=== PATIENT | male | born 1960 ===

== ENCOUNTER 2016-08-06 10:32 | Observation (INO) | payer OTHER ==
[2016-08-06 10:37] VITALS: BMI 27.6
[2016-08-06 10:38] VITALS: RESP 18
[2016-08-06] MEDS ORDERED: Iohexol 240 (50 ml) PO STA (11:44)
[2016-08-06] MEDS ORDERED: Sodium Chloride 0.9% 1,000 ML IV ONE (11:44)
--- NOTE | 2016-08-06 11:46 | C.PDOC ---
History Of Present Illness Patient is a 56 y/o male that presents to the emergency department for evaluation of generalized abdominal pain for the past month. Pt states the pain is worse in the suprapubic region. Pt complains of lower back pain radiating down to his legs, and also complains of dysuria, and testicular pain for the last 3 days. Otherwise, denies any penile pain, hematuria, urinary frequency, n/ v/d, fever, chills, or any other associated symptoms at this time. Denies any history of kidney stones. Time Seen by Provider: 08/06/16 10:48 Chief Complaint (Nursing): Abdominal Pain History Per: Patient History/Exam Limitations: language barrier (translated from citizen of [place]) Onset/Duration Of Symptoms: Days (1 month) Current Symptoms Are (Timing): Still Present Location Of Pain/Discomfort: Suprapubic Radiation Of Pain To:: Back, Leg Quality Of Discomfort: "Pain" Associated Symptoms: Back Pain, Urinary Symptoms (dysuria). denies: Fever, Chills, Nausea, Vomiting, Diarrhea, Loss Of Appetite, Chest Pain, Constipation Exacerbating Factors: None Alleviating Factors: None Recent travel outside of the [place]: No Additional History Per: Patient Past Medical History Reviewed: Historical Data, Nursing Documentation, Vital Signs Vital Signs: Last Vital Signs Temp 97.4 F L 08/06/16 17:46 Pulse 64 08/06/16 17:46 Resp 18 08/06/16 17:46 BP 134/85 08/06/16 17:46 Pulse Ox 97 08/06/16 18:57 Family History: States: Unknown Family Hx - Social History Hx Alcohol Use: No Hx Substance Use: No - Immunization History Hx Influenza Vaccination: No Hx Pneumococcal Vaccination: No Review Of Systems Except As Marked, All Systems Reviewed And Found Negative. Constitutional: Negative for: Fever, Chills Cardiovascular: Negative for: Chest Pain, Palpitations Respiratory: Negative for: Shortness of Breath Gastrointestinal: Positive for: Abdominal Pain (worse in suprapubic). Negative for: Nausea, Vomiting, Diarrhea Genitourinary: Positive for: Dysuria, Scrotal Pain. Negative for: Frequency, Hematuria, Penile Discharge, Penile Pain Musculoskeletal: Positive for: Back Pain Neurological: Negative for: Weakness, Numbness Physical Exam - Physical Exam Appears: Non-toxic, No Acute Distress Skin: Normal Color, Warm, Dry Head: Atraumatic, Normacephalic Eye(s): bilateral: Normal Inspection, EOMI Neck: Normal ROM, Supple Chest: Symmetrical, No Tenderness Cardiovascular: Rhythm Regular, No Murmur Respiratory: Normal Breath Sounds, No Rales, No Rhonchi, No Wheezing Gastrointestinal/Abdominal: Soft, Tenderness (diffuse), No Guarding, No Rebound Back: No CVA Tenderness, No Vertebral Tenderness, No Paraspinal Tenderness Male Genital: Testicular Tenderness, No Testicular Swelling, No Scrotal Swelling Extremity: Normal ROM, No Deformity Neurological/Psych: Oriented x3, Normal Speech, Normal Cognition ED Course And Treatment - Laboratory Results Result Diagrams: 08/06/16 12:17 08/06/16 12:17 O2 Sat by Pulse Oximetry: 97 (on RA) Pulse Ox Interpretation: Normal - CT Scan/US Testicular US Other Rad Studies (CT/US): Read By Radiologist, Radiology Report Reviewed CT/US Interpretation: FINDINGS: RIGHT TESTICLE: Measures 4.7 x 2.2 x 3.1 cm. Homogeneous echotexture. No intratesticular mass identified. Normal flow. RIGHT EPIDIDYMIS: Epididymal head measures 1.1 x 1.1 x 1.3 cm. Epididymal head cyst noted measuring 0.5 cm. LEFT TESTICLE: Measures 4.5 x 2.4 x 2.8 cm. Homogeneous echotexture. No intratesticular mass identified. Normal flow. LEFT EPIDIDYMIS: Epididymal head measures 1.3 x 0.8 x 1 cm. Epididymal head cyst noted measuring 0.8 Cm. HYDROCELE: Moderate-size, Complex left hydrocele containing echogenic debris and incomplete septations. VARICOCELE: None. OTHER FINDINGS: None. IMPRESSION: Moderate size complex left hydrocele as above. Bilateral epididymal head cysts. Abd & pelvis CT Other Rad Studies (CT/US): Read By Radiologist, Radiology Report Reviewed CT/US Interpretation: FINDINGS: Lower thorax: Heart size is normal. There is a small hiatal hernia. There is minimal atelectasis and. scarring at the lung bases. ABDOMEN: Liver: There is fatty infiltration of the liver. Gallbladder and bile ducts: unremarkable. Pancreas: unremarkable. Spleen: unremarkable. Adrenals: unremarkable. Kidneys and ureters: unremarkable. Stomach and bowel: Stomach is partially distended. Rotation is normal. There is no obstruction. Terminal ileum is unremarkable. Appendix is unremarkable.There are no focal colonic abnormalities. Appendix: See above. PELVIS: Bladder: Bladder is partially distended. There is mild bladder wall prominence. Reproductive: Prostate is enlarged. Seminal vesicles are unremarkable. ABDOMEN and PELVIS: Intraperitoneal space: There is no free air or free fluid. Bones/joints: There are degenerative changes in the osseus structures. Soft tissues: There are bilateral fat containing inguinal hernias left greater than right. There is a. small fat containing umbilical hernia. Vasculature: Vascular structures are unremarkable. Lymph nodes: No pathologic adenopathy. IMPRESSION: Fatty liver, no acute solid visceral or bowel abnormality. Additional findings as described above. Progress Note: Labs, testicular ultrasound, abd&pelvis CT ordered and reviewed. Pt was given IV fluids, Toradol, and Iohexol in the ER. On re-eval, pt reports improvement of symptoms. Reassessment Condition: Improved (On re-evaluation pt reports resolution of abdominal pain.) ED OBSERVATION Discharge: Yes Date of observation admission: 08/06/16 Time of observation admission: 14:00 - Observation admission statement Patient is being placed in observation because:: ABDOMINAL AND TESTICULAR PAIN, PENDING CT AND SONO - Goals of Observation Goals of observation are:: ABDOMINAL AND TESTICULAR PAIN, PENDING CT AND SONO - Progress Note Progress Note: 08/06/16 14:00 ABDOMINAL AND TESTICULAR PAIN, PENDING CT AND SONO 08/06/16 16:00 ABDOMINAL AND TESTICULAR PAIN, PENDING CT 08/06/16 18:55 CT +inlarged prostate adn fatty liver, no acute changes Disposition Counseled Patient/Family Regarding: Studies Performed, Diagnosis, Need For Followup, Rx Given - Disposition Disposition: HOME/ ROUTINE Disposition Time: 18:56 Condition: STABLE - Clinical Impression Clinical Impression: Hydrocele in adult, Prostate enlargement, Fatty liver - PA / OPERATING ROOM SCHEDULER / Resident Statement MD/DO has reviewed & agrees with the documentation as recorded. - Scribe Statement The provider has reviewed the documentation as recorded by the Jackieibkb Donis All medical record entries made by the Scribe were at my direction and personally dictated by me. I have reviewed the chart and agree that the record accurately reflects my personal performance of the history, physical exam, medical decision making, and the department course for this patient. I have also personally directed, reviewed, and agree with the discharge instructions and disposition.
[2016-08-06] MEDS ORDERED: Sodium Chloride 0.9% 1,000 ML ONE (12:00)
[2016-08-06] MEDS ORDERED: Iohexol 240 (50 ml) ONE (12:18)
[2016-08-06 12:20] LABS: BASO % 0.5 % (0.0-2.0); EOS # 0.1 K/uL (0.0-0.7); EOS % 1.4 % (0.0-4.0); HEMATOCRIT 47.2 % (35.0-51.0); LYMPH # 2.7 K/uL (1.0-4.3); LYMPH % 31.4 % (20.0-40.0); MEAN CELL VOLUME 91.5 fL (80.0-94.0); MEAN CORPUSCULAR HEMOGLOBIN 31.3 pg (27.0-31.0); MEAN CORPUSCULAR HGB CONC 34.2 g/dL (33.0-37.0); MEAN PLATELET VOLUME 8.8 fL (7.2-11.7); MONO # 0.6 K/uL (0.0-0.8); MONO % 6.9 % (0.0-10.0); NRBC % 0.1 % (0.0-2.0); RED CELL DISTRIBUTION WIDTH 13.2 % (11.5-14.5); WHITE BLOOD COUNT 8.5 K/uL (4.8-10.8)
[2016-08-06 12:28] LABS: CHLORIDE 103 mmol/L (98-107); SODIUM 139 mmol/L (132-148)
[2016-08-06 12:29] LABS: POTASSIUM 3.9 mmol/L (3.6-5.2)
[2016-08-06 12:30] LABS: GFR AFRICAN-AMERICAN > 60
[2016-08-06 12:31] LABS: ALB/GLOB RATIO 1.2 (1.0-2.1); ALKALINE PHOSPHATASE 84 U/L (38-126); ALT/SGPT 35 U/L (21-72); AST/SGOT 20 U/L (17-59); BILIRUBIN,TOTAL 0.8 mg/dL (0.2-1.3); BLOOD UREA NITROGEN 21 mg/dL (9-20); CALCIUM 8.9 mg/dl (8.6-10.4); CARBON DIOXIDE 26 mmol/L (22-30); GLUCOSE,RANDOM 81 mg/dL (75-110); TOTAL PROTEIN 7.2 g/dL (6.3-8.3)
[2016-08-06 12:33] LABS: RBC URINE < 1 /hpf (0-3); URINE BILIRUBIN NEGATIVE (NEGATIVE); URINE BLOOD 1+ (NEGATIVE); URINE COLOR Straw (YELLOW); URINE GLUCOSE (UA) NORMAL (Normal); URINE KETONE NEGATIVE (NEGATIVE); URINE LEUKOCYTE ESTERASE NEG Leu/uL (Negative); URINE PROTEIN NEGATIVE (NEGATIVE); URINE UROBILINOGEN NORMAL mg/dL (0.2-1.0); WBC URINE < 1 /hpf (0-5)
[2016-08-06] MEDS ORDERED: Iodixanol 320 MG/ML 100 ML BOTTLE IV ONE (14:22)
--- NOTE | 2016-08-06 14:27 | US ---
HISTORY: scrotal pain TECHNIQUE: Realtime sonography through the scrotum with color and doppler flow. COMPARISON: None Available. FINDINGS: RIGHT TESTICLE: Measures 4.7 x 2.2 x 3.1 cm. Homogeneous echotexture. No intratesticular mass identified. Normal flow. RIGHT EPIDIDYMIS: Epididymal head measures 1.1 x 1.1 x 1.3 cm. Epididymal head cyst noted measuring 0.5 cm. LEFT TESTICLE: Measures 4.5 x 2.4 x 2.8 cm. Homogeneous echotexture. No intratesticular mass identified. Normal flow. LEFT EPIDIDYMIS: Epididymal head measures 1.3 x 0.8 x 1 cm. Epididymal head cyst noted measuring 0.8 Cm. HYDROCELE: Moderate-size, Complex left hydrocele containing echogenic debris and incomplete septations. VARICOCELE: None. OTHER FINDINGS: None. IMPRESSION: Moderate size complex left hydrocele as above. Bilateral epididymal head cysts.
--- NOTE | 2016-08-06 18:35 | CT ---
EXAM: CT Abdomen and Pelvis With Intravenous Contrast CLINICAL HISTORY: 56 years old, male; Pain; Abdominal pain; Additional info: Abd pain TECHNIQUE: Axial computed tomography images of the abdomen and pelvis with intravenous contrast. This CT exam was performed using one or more of the following dose reduction techniques: automated exposure control, adjustment of the mA and/or kV according to patient size, and/or use of iterative reconstruction technique. Coronal and sagittal reformatted images were created and reviewed. CONTRAST: 100 mL of VISIPAQUE administered intravenously. EXAM DATE/TIME: 08/06/2016 11:45 AM COMPARISON: There are no prior studies for comparison. FINDINGS: Lower thorax: Heart size is normal. There is a small hiatal hernia. There is minimal atelectasis and scarring at the lung bases. ABDOMEN: Liver: There is fatty infiltration of the liver. Gallbladder and bile ducts: unremarkable Pancreas: unremarkable Spleen: unremarkable Adrenals: unremarkable Kidneys and ureters: unremarkable Stomach and bowel: Stomach is partially distended. Rotation is normal. There is no obstruction. Terminal ileum is unremarkable. Appendix is unremarkable.There are no focal colonic abnormalities. Appendix: See above. PELVIS: Bladder: Bladder is partially distended. There is mild bladder wall prominence. Reproductive: Prostate is enlarged. Seminal vesicles are unremarkable. ABDOMEN and PELVIS: Intraperitoneal space: There is no free air or free fluid. Bones/joints: There are degenerative changes in the osseus structures. Soft tissues: There are bilateral fat containing inguinal hernias left greater than right. There is a small fat containing umbilical hernia. Vasculature: Vascular structures are unremarkable. Lymph nodes: No pathologic adenopathy IMPRESSION: Fatty liver, no acute solid visceral or bowel abnormality Additional findings as described above.
[2016-08-06 19:15] VITALS: BP 142/84; PULSE 60; TEMP 97.6; O2SAT 96
== END 2016-08-06 18:56 | disposition home or self-care (01) ==
LOC: C.ER 10:32 → C.9OBSV 14:00
PROVIDERS: ADMIT Emergency Medicine; ATTEND Emergency Medicine
DX: N43.3 Hydrocele, unspecified (principal); N40.0 Benign prostatic hyperplasia without lower urinary tract symptoms; K76.0 Fatty (change of) liver, not elsewhere classified
CPT/HCPCS: 74177; 76870; 80053; 81001; 83690; 85025; 96361; 96374; 99285; G0378; J1885; J7040; Q9967

== ENCOUNTER 2017-03-16 18:08 | Emergency (ER) | payer OTHER ==
[2017-03-16 18:08] VITALS: BMI 27.6
[2017-03-16 18:38] VITALS: BP 130/85; PULSE 98; RESP 18; O2SAT 97
[2017-03-16 20:54] VITALS: TEMP 98.6
--- NOTE | 2017-03-16 20:57 | C.PDOC ---
History Of Present Illness 56 year old male presents to the ER with a complaint of fever, cough, body aches , abdominal cramping, vomiting, and diarrhea for the past 4 days. Denies recent travel or sick contact. Time Seen by Provider: 03/16/17 19:02 Chief Complaint (Nursing): Flu-like Symptoms History Per: Patient History/Exam Limitations: no limitations Onset/Duration Of Symptoms: Days Current Symptoms Are (Timing): Still Present Location Of Pain: Diffuse Myalgias, Other (Abdominal cramping) Sick Contacts (Context): None Associated Symptoms: Fever, Cough, Myalgias, Vomiting, Diarrhea, Other ( Abdominal cramping) Ear Symptoms: Bilateral: None Recent travel outside of the [place]: No Past Medical History Reviewed: Historical Data, Nursing Documentation, Vital Signs Vital Signs: Last Vital Signs Temp 98.6 F 03/16/17 20:53 Pulse 98 H 03/16/17 18:35 Resp 18 03/16/17 18:35 BP 130/85 03/16/17 18:35 Pulse Ox 97 03/16/17 21:42 Family History: States: Unknown Family Hx - Social History Hx Alcohol Use: No Hx Substance Use: No - Immunization History Hx Influenza Vaccination: No Hx Pneumococcal Vaccination: No Review Of Systems Constitutional: Positive for: Fever ENT: Negative for: Nose Discharge, Throat Pain Respiratory: Positive for: Cough Gastrointestinal: Positive for: Nausea, Vomiting, Abdominal Pain, Diarrhea Musculoskeletal: Positive for: Other (Body aches) Physical Exam - Physical Exam Appears: Non-toxic Skin: Normal Color, Warm, Dry Head: Atraumatic, Normacephalic Eye(s): bilateral: Normal Inspection Ear(s): Bilateral: Normal Nose: Normal Oral Mucosa: Moist Throat: Normal, No Erythema, No Exudate Neck: Normal, Supple Chest: Symmetrical, No Tenderness Cardiovascular: Rhythm Regular Respiratory: Normal Breath Sounds, No Rales, No Rhonchi, No Wheezing Gastrointestinal/Abdominal: Soft, No Tenderness Back: No CVA Tenderness Neurological/Psych: Oriented x3, Normal Speech ED Course And Treatment O2 Sat by Pulse Oximetry: 97 (Room air) Pulse Ox Interpretation: Normal - Radiology CXR: Interpreted by Me, Viewed By Me CXR Interpretation: Yes: Other (Questionable fullness of right lower lobe) Progress Note: Flu swab and CXR ordered; flu swab was negative and CXR showed questionable right lower lobe fullness. Tylenol administered. On reevaluation, patient reports improvement of pain; will start on zithromax and discharge with instructions to follow up with PMD for further evaluation. Disposition - Disposition Referrals: [facility] at [facility] [Outside] Disposition: HOME/ ROUTINE Disposition Time: 20:54 Condition: STABLE Additional Instructions: Follow up with PMD within 1-2 days. Return to ED if feel worse. Prescriptions: Ibuprofen [Motrin Tab] 600 mg PO Q8 #30 tab Promethazine HCl/Codeine [Prometh-Codein 6.25-10 mg/5 ml] 5 ml PO .Q4-6H #150 ml Azithromycin [Zithromax] 250 mg PO DAILY #4 tab Ondansetron ODT [Zofran ODT] 4 mg PO .Q4-6H PRN #20 odt PRN Reason: Nausea/Vomiting Instructions: Acute Bronchitis (ED) Forms: [employer] (Macedonian) Print Language: [place] - Clinical Impression Clinical Impression: Influenza-like illness, Bronchitis - PA / REEL STRIPPER / Resident Statement MD/DO has reviewed & agrees with the documentation as recorded. - Scribe Statement The provider has reviewed the documentation as recorded by the Scribkb Unger All medical record entries made by the Nery were at my direction and personally dictated by me. I have reviewed the chart and agree that the record accurately reflects my personal performance of the history, physical exam, medical decision making, and the department course for this patient. I have also personally directed, reviewed, and agree with the discharge instructions and disposition.
--- NOTE | 2017-03-17 09:12 | RAD ---
HISTORY: cough/fever COMPARISON: None available. TECHNIQUE: Chest PA and lateral FINDINGS: LUNGS: Right hilar prominence. No focal consolidation. Please note that chest x-ray has limited sensitivity for the detection of pulmonary masses. PLEURA: No significant pleural effusion identified. No definite pneumothorax . CARDIOVASCULAR: Heart size appears within normal limits. OSSEOUS STRUCTURES: Degenerative changes of the spine. VISUALIZED UPPER ABDOMEN: Mild elevation of the right hemidiaphragm. OTHER FINDINGS: None. IMPRESSION: Right hilar prominence.
== END 2017-03-16 21:53 | disposition home or self-care (01) ==
LOC: C.ER 18:08
DX: J11.1 Influenza due to unidentified influenza virus with other respiratory manifestations (principal); J40 Bronchitis, not specified as acute or chronic

== ENCOUNTER 2017-06-13 20:01 | Emergency (ER) | payer OTHER ==
[2017-06-13 20:01] VITALS: BMI 27.6
[2017-06-13] MEDS ORDERED: Sodium Chloride 0.9% 1,000 ML ONE (22:20)
[2017-06-13] MEDS ORDERED: Sodium Chloride 0.9% 1,000 ML IV ONE (22:48)
[2017-06-13 23:27] VITALS: RESP 20; O2SAT 96
[2017-06-13 23:54] LABS: URINE CLARITY Clear (Clear); URINE COLOR STRAW (YELLOW)
[2017-06-13 23:55] LABS: URINE BACTERIA RARE (<OCC); URINE BILIRUBIN NEGATIVE (NEGATIVE); URINE BLOOD NEGATIVE (NEGATIVE); URINE GLUCOSE (UA) Normal (Normal); URINE LEUKOCYTE ESTERASE NEGATIVE Leu/uL (Negative); URINE PROTEIN NEGATIVE (NEGATIVE); URINE UROBILINOGEN Normal mg/dL (0.2-1.0)
[2017-06-14] LABS: BLOOD UREA NITROGEN 17 mg/dL (9-20); GFR AFRICAN-AMERICAN > 60; GFR NON-AFRICAN AMERICAN > 60
[2017-06-14 00:01] LABS: ALB/GLOB RATIO 1.1 (1.0-2.1); ALBUMIN 4.2 g/dL (3.5-5.0); ALT/SGPT 36 U/L (21-72); AST/SGOT 39 U/L (17-59); LIPASE 102 U/L (23-300)
--- NOTE | 2017-06-14 00:48 | CT ---
EXAM: CT Abdomen and Pelvis Without Intravenous Contrast CLINICAL HISTORY: 56 years old, male; Pain; Abdominal pain and other: Abd pain, hematuria, dysuria; Patient HX: Prior 617 images sent TECHNIQUE: Axial computed tomography images of the abdomen and pelvis without intravenous contrast. All CT scans at this facility use one or more dose reduction techniques, viz.: automated exposure control; ma/kV adjustment per patient size (including targeted exams where dose is matched to indication; i.e. head); or iterative reconstruction technique. Coronal and sagittal reformatted images were created and reviewed. COMPARISON: CT - ABD PELVIS PO IV CONTRAST 2016-08-06 16:31 FINDINGS: Lung bases: Unremarkable. No mass. No consolidation. ABDOMEN: Liver: Unremarkable. Gallbladder and bile ducts: Unremarkable. No calcified stones. No ductal dilation. Pancreas: Unremarkable. No ductal dilation. Spleen: Unremarkable. No splenomegaly. Adrenals: Unremarkable. No mass. Kidneys and ureters: Unremarkable. No obstructing stones. No hydronephrosis. Mildly prominent distal left ureter, unchanged. Stomach and bowel: There is no wall thickening or pericolonic stranding to suggest colitis. No obstruction. Appendix: The appendix is top normal to mildly prominent measuring 7 mm. No adjacent inflammatory stranding to suggest acute appendicitis. PELVIS: Bladder: Unremarkable. No stones. Reproductive: The prostate gland demonstrates mild hypertrophy. ABDOMEN and PELVIS: Intraperitoneal space: Unremarkable. No free air. No significant fluid collection. Bones/joints: No acute fracture. No dislocation. Soft tissues: Unremarkable. Vasculature: Unremarkable. No abdominal aortic aneurysm. Lymph nodes: Unremarkable. No enlarged lymph nodes. IMPRESSION: No acute findings.
--- NOTE | 2017-06-14 00:49 | C.PDOC ---
Time Seen by Provider: 06/13/17 22:39 Chief Complaint (Nursing): Abdominal Pain History Per: Patient, Family Onset/Duration Of Symptoms: Days (few) Current Symptoms Are (Timing): Still Present Severity: Moderate Location Of Pain/Discomfort: Suprapubic Radiation Of Pain To:: Flank Quality Of Discomfort: Unable To Describe, "Pain" Associated Symptoms: Urinary Symptoms Exacerbating Factors: Other (Urination) Alleviating Factors: None Additional History Per: Prior Records Past Medical History Reviewed: Historical Data, Nursing Documentation, Vital Signs Vital Signs: Last Vital Signs Temp 98.1 F 06/13/17 20:29 Pulse 73 06/13/17 23:00 Resp 20 06/13/17 23:00 BP 139/87 06/13/17 23:00 Pulse Ox 96 06/14/17 00:51 - Medical History PMH: No Chronic Diseases Surgical History: No Surg Hx Family History: States: Unknown Family Hx - Social History Hx Alcohol Use: No Hx Substance Use: No - Immunization History Hx Tetanus Toxoid Vaccination: No Hx Influenza Vaccination: No Hx Pneumococcal Vaccination: No Review Of Systems Except As Marked, All Systems Reviewed And Found Negative. Constitutional: Negative for: Fever, Weakness Cardiovascular: Negative for: Chest Pain Respiratory: Negative for: Shortness of Breath Gastrointestinal: Positive for: Abdominal Pain. Negative for: Vomiting, Diarrhea Genitourinary: Positive for: Dysuria, Hematuria (?) Musculoskeletal: Positive for: Back Pain. Negative for: Neck Pain Skin: Negative for: Rash Neurological: Negative for: Weakness, Numbness Physical Exam - Physical Exam Appears: Non-toxic, No Acute Distress Skin: Normal Color, Warm, Dry, No Rash Head: Atraumatic, Normacephalic Eye(s): bilateral: Normal Inspection, PERRL, EOMI Neck: Normal ROM, Supple Cardiovascular: Rhythm Regular Respiratory: Normal Breath Sounds, No Accessory Muscle Use Gastrointestinal/Abdominal: Soft, Tenderness (suprapubic), No Guarding, No Rebound Back: No CVA Tenderness Male Genital: No Testicular Tenderness, Other (Left hydrocele) Extremity: Normal ROM Neurological/Psych: Oriented x3, Normal Motor, Normal Sensation ED Course And Treatment - Laboratory Results Result Diagrams: 06/13/17 22:30 Lab Interpretation: No Acute Changes O2 Sat by Pulse Oximetry: 96 Pulse Ox Interpretation: Normal - CT Scan/US CT abd/pelv Other Rad Studies (CT/US): Read By Radiologist, Radiology Report Reviewed CT/US Interpretation: No acute findings. Progress Note: Pt c/o hematospermia. Will treat for possible orchitis and refer to Urology. Reassessment Condition: Improved Disposition Counseled Patient/Family Regarding: Studies Performed, Diagnosis, Need For Followup, Rx Given - Disposition Referrals: Mila Urbina [Primary Care Provider] - Saroj Mcgrath MD [Staff Provider] - Disposition: HOME/ ROUTINE Disposition Time: 00:55 Condition: IMPROVED Additional Instructions: Follow up with a Urologist within 1 week for further evaluation and treatment. Return to the ER if you develop fever, vomiting, worsening of symptoms or if you have any other concerns. Prescriptions: levoFLOXacin [Levaquin] 500 mg PO DAILY #10 tab Forms: Gen Discharge Inst Lao - Clinical Impression Clinical Impression: Hematospermia, Abdominal pain, Dysuria
[2017-06-14 01:24] VITALS: BP 149/87; PULSE 76; TEMP 98.4
[2017-06-14 10:23] LABS: HEMOGLOBIN 16.4 g/dL (12.0-18.0); LYMPH % 41.3 % (20.0-40.0); MEAN CELL VOLUME 88.6 fL (80.0-94.0); MEAN CORPUSCULAR HEMOGLOBIN 31.5 pg (27.0-31.0); MEAN CORPUSCULAR HGB CONC 35.6 g/dL (33.0-37.0); MEAN PLATELET VOLUME 8.6 fL (7.2-11.7); MONO % 9.3 % (0.0-10.0); NEUT % 45.8 % (50.0-75.0); RBC 5.2 Mil/uL (4.40-5.90); RED CELL DISTRIBUTION WIDTH 13.5 % (11.5-14.5); WHITE BLOOD COUNT 7.2 K/uL (4.8-10.8)
[2017-06-14 10:24] LABS: BASO % 0.6 % (0.0-2.0); EOS # 0.2 K/uL (0.0-0.7); MONO # 0.7 K/uL (0.0-0.8); NEUT # 3.3 K/uL (1.8-7.0); NRBC % 0.2 % (0.0-2.0)
== END 2017-06-14 00:46 | disposition home or self-care (01) ==
LOC: SUPCPDRO 20:01 → C.ER 20:01
DX: R10.30 Lower abdominal pain, unspecified (principal); R36.1 Hematospermia; R30.0 Dysuria
CPT/HCPCS: 74176; 80053; 81001; 83690; 85025; 87086; 87491; 87591; 96361; 96374; 99282; J1885; J7040

== ENCOUNTER 2017-08-09 10:52 | Emergency (ER) | payer OTHER ==
[2017-08-09 10:52] VITALS: BMI 27.6
[2017-08-09 11:00] VITALS: TEMP 97.6; O2SAT 99
--- NOTE | 2017-08-09 11:36 | C.PDOC ---
History Of Present Illness 57 y/o male w/o significant PMHx presents to ED for evaluation of cold like symptoms for 2 days associated with runny nose, sore throat and dry cough. Patient reports he noticed redness to right eye this morning, (+) itchiness. Otherwise, pt denies fever, chills, headache, dizziness, vertigo, visual changes , blurry vision, eye discharges, drooling, neck pain, CP, SOB, dyspnea, palpitation, wheezing, abd. pain, nausea, vomiting, diarrhea, back pain, AMbulate to Ed for evaluation, not in any apparent distress. Time Seen by Provider: 08/09/17 11:08 Chief Complaint (Nursing): Cough, Cold, Congestion History Per: Patient History/Exam Limitations: no limitations Onset/Duration Of Symptoms: Days Current Symptoms Are (Timing): Still Present Associated Symptoms: Sore Throat Past Medical History Reviewed: Historical Data, Nursing Documentation, Vital Signs Vital Signs: Last Vital Signs Temp 97.6 F 08/09/17 10:57 Pulse 68 08/09/17 11:40 Resp 16 08/09/17 11:40 BP 135/85 08/09/17 11:40 Pulse Ox 99 08/09/17 11:41 - Medical History PMH: No Chronic Diseases Family History: States: No Known Family Hx - Social History Hx Alcohol Use: No Hx Substance Use: No - Immunization History Hx Tetanus Toxoid Vaccination: No Hx Influenza Vaccination: No Hx Pneumococcal Vaccination: No Review Of Systems Constitutional: Negative for: Fever, Chills Eyes: Positive for: Redness ENT: Positive for: Throat Pain Cardiovascular: Negative for: Palpitations Respiratory: Positive for: Cough. Negative for: Shortness of Breath Skin: Negative for: Rash Physical Exam - Physical Exam Appears: Non-toxic, No Acute Distress Skin: Warm, Dry, No Rash Head: Normacephalic Eye(s): bilateral: PERRL, EOMI (no pain or limitation on extraocular movement B/ L), right: Other (tiny subconjunctival hemorrhage. No periorbital edema or erythema, no eye discahrges.) Ear(s): Bilateral: Normal Nose: Discharge (clear), Other (Nasal congestion bilateral) Oral Mucosa: Moist, No Drooling Tongue: Normal Appearing Lips: Normal Appearing Throat: Erythema (B/L mild), No Drooling Neck: Trachea Midline, Supple Cardiovascular: Rhythm Regular Respiratory: No Decreased Breath Sounds, No Rales, No Rhonchi, No Stridor, No Wheezing Gastrointestinal/Abdominal: Soft, No Tenderness, No Distention, No Guarding Extremity: Normal ROM, No Deformity, No Swelling Neurological/Psych: Oriented x3, Normal Speech, Normal Cognition ED Course And Treatment O2 Sat by Pulse Oximetry: 99 (RA) Pulse Ox Interpretation: Normal Progress Note: On re-evaluation, pt is afebrile, hemodynamicaly stable. Non- toxic. PulsEOx 99% RA. ENT: No acute findings. uvula midline, no edema. neck : Supple, (-) meningeal sign, (-) JVD. Lungs: CTA B/L, BS equal B/L. Abd: benign. Neuorlogicaly intact. Pt has clinical findings c/w acute bronchitis, small Right subconjunctival hemorrhage. Pt advised. ref. to f/u with PMD, Opht in 2-3 days for re-eval. return to ED if any worsening or new changes. Disposition Counseled Patient/Family Regarding: Diagnosis, Need For Followup, Rx Given - Disposition Referrals: Mila Urbina [Staff Provider] - Disposition: HOME/ ROUTINE Disposition Time: 11:34 Condition: STABLE Additional Instructions: Encourage fluids Do not rub eyes Follow up with PMD in 2-3 days for re-evaluation. return to ED if any worsening or new changes. Prescriptions: Azithromycin [Zithromax] 250 mg PO DAILY #4 tab Benzonatate [Tessalon Perle] 100 mg PO TID #14 capsule Prednisone [Deltasone] 20 mg PO DAILY #3 tablet Instructions: Acute Bronchitis, Subconjunctival Hemorrhage Forms: [employer] (Serbian) Print Language: ALBANIAN - Clinical Impression Clinical Impression: Bronchitis, Subconjunctival hemorrhage - PA / RADIO STATION ENGINEER / Resident Statement MD/DO has reviewed & agrees with the documentation as recorded. - Scribe Statement The provider has reviewed the documentation as recorded by the Nery Fuentes All medical record entries made by the Scribe were at my direction and personally dictated by me. I have reviewed the chart and agree that the record accurately reflects my personal performance of the history, physical exam, medical decision making, and the department course for this patient. I have also personally directed, reviewed, and agree with the discharge instructions and disposition.
[2017-08-09 11:41] VITALS: BP 135/85; PULSE 68; RESP 16
== END 2017-08-09 11:40 | disposition home or self-care (01) ==
LOC: C.ER 10:52
DX: H11.31 Conjunctival hemorrhage, right eye (principal)

== ENCOUNTER 2017-10-27 20:38 | Emergency (ER) | payer OTHER ==
[2017-10-27 20:38] VITALS: BMI 27.6
[2017-10-27 21:06] VITALS: PULSE 71
[2017-10-27] MEDS ORDERED: Tdap Vaccine 0.5 ml Vial (10-64 yrs) IM ONE ×2 (21:27→21:32)
[2017-10-27] MEDS ORDERED: Bacitracin 500 Units/gm Oint Foilpak UD TOP ONE (21:28)
[2017-10-27] MEDS ORDERED: Lidocaine 2% Inj (20ml) INFIL ONE (21:28)
[2017-10-27] MEDS ORDERED: Bacitracin 500 Units/gm Oint Foilpak UD ONE (21:32)
[2017-10-27] MEDS ORDERED: Lidocaine Hydrochloride 5 ML INJ ONE (21:32)
--- NOTE | 2017-10-27 22:10 | C.PDOC ---
History Of Present Illness 57 year old male presents to the ER after sustaining a laceration to his left 2nd finger [employer]. Patient states he was cutting wood and accidentally cut his finger with the machine. Denies change in sensation or weakness. Time Seen by Provider: 10/27/17 21:25 Chief Complaint (Nursing): Abnormal Skin Integrity History Per: Patient History/Exam Limitations: no limitations Onset/Duration Of Symptoms: Hrs Current Symptoms Are (Timing): Still Present Location Of Injury: Left: Hand Quality Of Symptoms: Other (Laceration) Recent travel outside of the [place]: No Past Medical History Reviewed: Historical Data, Nursing Documentation, Vital Signs Vital Signs: Last Vital Signs Temp 98.5 F 10/27/17 22:13 Pulse 71 10/27/17 22:13 Resp 16 10/27/17 22:13 BP 134/87 10/27/17 22:13 Pulse Ox 98 10/27/17 23:21 Family History: States: Unknown Family Hx - Social History Hx Alcohol Use: No Hx Substance Use: No - Immunization History Hx Tetanus Toxoid Vaccination: No Hx Influenza Vaccination: No Hx Pneumococcal Vaccination: No Review Of Systems Musculoskeletal: Positive for: Hand Pain Skin: Positive for: Other (Laceration) Neurological: Negative for: Weakness, Numbness Physical Exam - Physical Exam Appears: Non-toxic, No Acute Distress Skin: Warm, Dry Head: Atraumatic, Normacephalic Eye(s): bilateral: Normal Inspection, EOMI Nose: Normal Oral Mucosa: Moist Neck: Normal ROM, Supple Chest: Symmetrical Respiratory: No Accessory Muscle Use Extremity: Normal ROM, Capillary Refill (<2 seconds), Other (4cm laceration to left lateral 2nd finger) Extremity: Bilateral: Normal ROM Pulses: Left Radial: Normal, Right Radial: Normal Neurological/Psych: Oriented x3, Normal Speech, Normal Motor, Normal Sensation ED Course And Treatment O2 Sat by Pulse Oximetry: 98 (Room air) Pulse Ox Interpretation: Normal Progress Note: Patient tolerated laceration repair without any difficulty. Bacitracin applied, tetanus vaccination administered. Patient placed in finger splint for support, given proper wound care instructions, and advised to follow up for suture removal. Laceration - Laceration Repair Left 2nd finger Wound Length (In cm): 4 Description Of Wound: Irregular Wound Cleansed With: Betadine, Sterile Saline Anesthesia: Lidocaine 2% Wound Examination: Irrigated With Saline, No FB With Wound Exploration, No Tendon Injury With Wound Exploration Wound Closure: Suture (x7) Suture Technique And Material Used: Nylon (4-0) Disposition - Disposition Disposition: HOME/ ROUTINE Disposition Time: 21:40 Condition: STABLE Additional Instructions: Wound check in 2 days. Suture removal in 7-10 days. Watch for signs of infection including redness, swelling and discharge. Chequeo de heridas en 2 russ. Eliminacin de sutura en 7-10 russ. Est atento a los signos de infeccin, incluyendo enrojecimiento, hinchazn y secrecin. Instructions: Laceration Repair With Stitches (DC) Forms: [employer] (Citizen Of [place]) Print Language: ITALIAN - Clinical Impression Clinical Impression: Finger laceration - PA / LIFESTYLE COORDINATOR / Resident Statement MD/DO has reviewed & agrees with the documentation as recorded. - Scribe Statement The provider has reviewed the documentation as recorded by the Scribe Hung Unger All medical record entries made by the Scribe were at my direction and personally dictated by me. I have reviewed the chart and agree that the record accurately reflects my personal performance of the history, physical exam, medical decision making, and the department course for this patient. I have also personally directed, reviewed, and agree with the discharge instructions and disposition.
[2017-10-27 22:14] VITALS: BP 134/87; RESP 16; TEMP 98.5
[2017-10-27 23:15] VITALS: O2SAT 98
== END 2017-10-27 22:19 | disposition home or self-care (01) ==
LOC: C.ER 20:38
DX: S61.211A Laceration without foreign body of left index finger without damage to nail, initial encounter (principal); W31.9XXA Contact with unspecified machinery, initial encounter; Z23 Encounter for immunization

== ENCOUNTER 2017-11-14 09:32 | Emergency (ER) | payer OTHER ==
[2017-11-14 09:33] VITALS: BMI 27.6
[2017-11-14 09:46] VITALS: BP 146/87; PULSE 58; RESP 16; TEMP 98.6; O2SAT 98
--- NOTE | 2017-11-14 09:54 | C.PDOC ---
History Of Present Illness 57 y/o male presents to ED for wound check on laceration he had 10/27/17 to left 2nd finger. Patient reports he notices swelling and denies discharge, active bleeding, fluctuance or any other complaints at this time. Time Seen by Provider: 11/14/17 09:48 Chief Complaint (Nursing): Abnormal Skin Integrity History Per: Patient History/Exam Limitations: no limitations Onset/Duration Of Symptoms: Days Current Symptoms Are (Timing): Still Present Past Medical History Reviewed: Historical Data, Nursing Documentation, Vital Signs Vital Signs: Last Vital Signs Temp 98.6 F 11/14/17 09:44 Pulse 58 L 11/14/17 09:44 Resp 16 11/14/17 09:44 BP 146/87 11/14/17 09:44 Pulse Ox 98 11/14/17 09:54 - Medical History PMH: No Chronic Diseases Surgical History: No Surg Hx Family History: States: No Known Family Hx - Social History Hx Alcohol Use: No Hx Substance Use: No - Immunization History Hx Tetanus Toxoid Vaccination: No Hx Influenza Vaccination: No Hx Pneumococcal Vaccination: No Review Of Systems Constitutional: Negative for: Fever, Chills Musculoskeletal: Positive for: Hand Pain Skin: Negative for: Rash Neurological: Negative for: Weakness, Numbness Physical Exam - Physical Exam Appears: Non-toxic, No Acute Distress Skin: Warm, Dry, No Rash Head: Atraumatic, Normacephalic Eye(s): bilateral: Normal Inspection Oral Mucosa: Moist Extremity: Capillary Refill (<2 seconds), No Deformity, Swelling (mild to distal left 2nd finger. No erythema, No tenderness or fluctuance) Pulses: Left Radial: Normal Neurological/Psych: Oriented x3, Normal Speech, Normal Motor, Normal Sensation ED Course And Treatment O2 Sat by Pulse Oximetry: 98 (RA) Pulse Ox Interpretation: Normal Medical Decision Making Medical Decision Making: healing L 2nd finger. lac repair 10/27 with residual post-op/repair swelling and mild edema but NO s/s of infection lac repair intact, no separations. Reassured, normal healing and back to baseline 2-3 months. consider opt MRI 2-3 mo to r/o osteomyelitis if not properly healed by then Disposition Doctor Will See Patient In The: Office Counseled Patient/Family Regarding: Studies Performed, Diagnosis - Disposition Referrals: [facility] [Outside] [facility] [Outside] [facility] [Outside] [facility] [Outside] Disposition: HOME/ ROUTINE Disposition Time: 09:54 Condition: GOOD Additional Instructions: esta sagar german debe ser normal en 2-3 meses mas Mientra tiempo actividades normales. Forms: General Discharge Instructions, [facility] (Grenadian) Print Language: MONGOLIAN - Clinical Impression Clinical Impression: Encounter for wound re-check - Scribe Statement The provider has reviewed the documentation as recorded by the Scribkb Fuentes All medical record entries made by the Jackieibkb were at my direction and personally dictated by me. I have reviewed the chart and agree that the record accurately reflects my personal performance of the history, physical exam, medical decision making, and the department course for this patient. I have also personally directed, reviewed, and agree with the discharge instructions and disposition.
== END 2017-11-14 10:02 | disposition home or self-care (01) ==
LOC: C.ER 09:32
DX: Z48.00 Encounter for change or removal of nonsurgical wound dressing (principal)